=== PATIENT | male | born 1955 | race Caucasian/White ===

== ENCOUNTER 2019-11-01 06:30 | Day surgery (SDC) | payer MEDICARE, OTHER ==
[2019-11-01] MEDS ORDERED: Buffered Lidocaine 1% SYRIN* 1 ML/SYRINGE INTRADERM ONE (07:07)
[2019-11-01] MEDS ORDERED: Midazolam* 1 MG/ML 2 ML VIAL (2 MG) ONE (07:40)
[2019-11-01] MEDS ORDERED: fentaNYL* 50 MCG/ML 2 ML VIAL (100 MCG VIAL) ONE (07:40)
[2019-11-01] MEDS ORDERED: Propofol* 10 MG/ML 20 ML BTL ONE (08:20)
[2019-11-01] MEDS ORDERED: Neomycin/Polymy/Dex OPTH.SUSP* MAXITROL 0.1% 5 ML ONE (08:56)
[2019-11-01] MEDS ORDERED: Phenylephrine OPHTH SOL 2.5%* 2 ML ONE (08:56)
[2019-11-01] MEDS ORDERED: Proparacaine 0.5% OPHTH.SOL* 15 ML BTL ONE (08:56)
[2019-11-01] MEDS ORDERED: Cyclopentolate 1% OPTH.SOL* 2 ML BTL ONE (08:56)
[2019-11-01] MEDS ORDERED: acetaZOLAMIDE TAB* 250 MG ONE (08:56)
[2019-11-01] MEDS ORDERED: Lidocaine 1% MPF ** 5 ML VIAL ONE (08:56)
[2019-11-01] MEDS ORDERED: Lidocaine 2% w/ EPI 1:200,000* 20 ML SDV VIAL ONE (08:56)
[2019-11-01] MEDS ORDERED: Ketorolac 0.5% OPHTH (NF) 0.5 % 5 ML BTL ONE (08:56)
[2019-11-01] MEDS ORDERED: Povidone Iodine 5% OPTH* 30 ML BTL ONE (08:56)
[2019-11-01 09:03] VITALS: BP 110/65
--- NOTE | 2019-11-01 09:42 | OP ---
OPERATIVE NOTE: DATE OF OPERATION: 11/01/19 DATE OF : 51 SURGEON: Yakov Lange MD PREOPERATIVE DIAGNOSIS: Cataract and glaucoma, right eye. POSTOPERATIVE DIAGNOSIS: Cataract and glaucoma, right eye. OPERATIVE PROCEDURE: Extracapsular cataract extraction with intraocular lens implant and iStent, rig ht eye. PROCEDURE: The patient was brought to the operating room after being given 1/2% Alcaine with epineph rine drops in the preoperative area. The eye was prepped and draped in the usual sterile fashion. S terile drape and eyelid speculum were placed. Again, topical 1/2% Alcaine with epinephrine was given . A paracentesis incision was made at the 9 o'clock position with the No.75 blade. Clear cornea inc ision 2.2 x 2.2-mm was created at the 12 o'clock position starting at the anterior limbus using the 2 .2-mm keratome. The anterior chamber was irrigated with 0.4 mL of 1% non-preservative intracameral l idocaine and filled with DisCoVisc. A capsulorrhexis was completed using the cystotome and the Utrat a forceps. Hydrodissection was performed with balanced salt solution. The lens nucleus was removed w ith the Phacoemulsification handpiece without incident. Cortex was removed with the irrigation-aspir ation handpiece. The capsular bag was re-inflated using DisCoVisc and an SN60WF 11.5 implant was ins erted with the shooter followed by iStent inject inserted with a shooter at the 2 o'clock and 4 o'beverly ck position. The irrigation-aspiration handpiece was used to remove all residual DisCoVisc. The eye was refilled with balanced salt solution and the wound checked and found to be watertight. Topical M axitrol drops were given. [id number]/[facility] #: [id number]
[2019-11-02] MEDS ORDERED: Acetaminophen TAB* 325 MG PO PRN (05:00)
== END 2019-11-01 08:58 | disposition home or self-care (01) ==
LOC: OREAST 06:30
PROVIDERS: ATTEND Specialist
DX: H25.811 Combined forms of age-related cataract, right eye (principal); H40.1131 Primary open-angle glaucoma, bilateral, mild stage; H35.373 Puckering of macula, bilateral; I10 Essential (primary) hypertension; E78.00 Pure hypercholesterolemia, unspecified; Z85.828 Personal history of other malignant neoplasm of skin
CPT/HCPCS: A9270-GY; C1783; J2250; J2704; J3010; V2632

== ENCOUNTER 2019-11-08 07:46 | Day surgery (SDC) | payer MEDICARE, OTHER ==
[~2019-11-08 07:46] MED LIST: Acetaminophen TAB* 325 MG PO PRN; Buffered Lidocaine 1% SYRIN* 1 ML/SYRINGE INTRADERM ONE
[2019-11-08] MEDS ORDERED: Midazolam* 1 MG/ML 2 ML VIAL (2 MG) ONE (09:24)
[2019-11-08 10:41] VITALS: BP 107/61
--- NOTE | 2019-11-08 11:35 | OP ---
DATE OF OPERATION: 11/08/2019. DATE OF : 1955. SURGEON: Yakov Lange M.D. PREOPERATIVE DIAGNOSIS: Cataract left eye and glaucoma. POSTOPERATIVE DIAGNOSIS: Cataract left eye and glaucoma. OPERATIVE PROCEDURE: Extracapsular cataract extraction with intraocular lens implant and iStent left eye. PROCEDURE: The patient was brought to the operating room after being given 1/2% Alcaine with epineph rine drops in the preoperative area. The eye was prepped and draped in the usual sterile fashion. S terile drape and eyelid speculum were placed. Again, topical 1/2% Alcaine with epinephrine was given . A paracentesis incision was made at the 3 o'clock position with the No.75 blade. Clear cornea inc ision 2.2 x 2.2-mm was created at the 6 o'clock position starting at the anterior limbus using the 2. 2-mm keratome. The anterior chamber was irrigated with 0.4 mL of 1% non-preservative intracameral li docaine and filled with DisCoVisc. A capsulorrhexis was completed using the cystotome and the Utrata forceps. Hydrodissection was performed with balanced salt solution. The lens nucleus was removed wi th the Phacoemulsification handpiece without incident. Cortex was removed with the irrigation-aspira tion handpiece. The capsular bag was re-inflated using DisCoVisc and an SN60WF 10.5 implant was inse rted with the shooter, followed by an iStent inject inserted with its shooter at the 8 o'clock and 10 o'clock positions. The irrigation-aspiration handpiece was used to remove all residual DisCoVisc. The eye was refilled with balanced salt solution and the wound checked and found to be watertight. T opical Maxitrol drops were given. [id number]/[facility] #: [id number]
[2019-11-08] MEDS ORDERED: Phenylephrine OPHTH SOL 2.5%* 2 ML ONE (15:05)
[2019-11-08] MEDS ORDERED: Proparacaine 0.5% OPHTH.SOL* 15 ML BTL ONE (15:05)
[2019-11-08] MEDS ORDERED: Lidocaine 2% w/ EPI 1:200,000* 20 ML SDV VIAL ONE (15:05)
[2019-11-08] MEDS ORDERED: Povidone Iodine 5% OPTH* 30 ML BTL ONE (15:05)
[2019-11-08] MEDS ORDERED: Cyclopentolate 1% OPTH.SOL* 2 ML BTL ONE (15:05)
[2019-11-08] MEDS ORDERED: acetaZOLAMIDE TAB* 250 MG ONE (15:05)
[2019-11-08] MEDS ORDERED: Ketorolac 0.5% OPHTH (NF) 0.5 % 5 ML BTL ONE (15:05)
[2019-11-08] MEDS ORDERED: Lidocaine 1% MPF ** 5 ML VIAL ONE (15:05)
[2019-11-08] MEDS ORDERED: Neomycin/Polymy/Dex OPTH.SUSP* MAXITROL 0.1% 5 ML ONE (15:05)
== END 2019-11-08 10:35 | disposition home or self-care (01) ==
LOC: OREAST 07:46
PROVIDERS: ATTEND Specialist
DX: H25.812 Combined forms of age-related cataract, left eye (principal); H40.1131 Primary open-angle glaucoma, bilateral, mild stage; H35.373 Puckering of macula, bilateral; Z87.891 Personal history of nicotine dependence; I10 Essential (primary) hypertension; E78.2 Mixed hyperlipidemia; M54.9 Dorsalgia, unspecified
CPT/HCPCS: A9270-GY; C1783; J2250; V2632

== ENCOUNTER 2022-07-31 13:33 | Inpatient (IN) ==
[2022-07-31 16:54] LABS: ABS Basophils 0.1 10^3/ul (0-0.2); ABS Eosinophils 0.1 10^3/ul (0-0.6); ABS Lymphocytes 1.8 10^3/ul (1.0-4.8); ABS Monocytes 0.3 10^3/ul (0-0.8); ABS Neutrophils 3.6 10^3/ul (1.5-7.7); Eosinophil % 1.4 %; Hematocrit 45 % (42-52); Hemoglobin 15.1 g/dL (14.0-18.0); Lymphocyte % 30.4 %; Mean Corpuscular HGB Conc 34 g/dL (31-36); Mean Corpuscular Hemoglobin 30 pg (27-31); Mean Corpuscular Volume 88 fL (80-94); Mean Platelet Volume 8.7 fL (7.4-10.4); Nucleated Red Blood Cells % 0.1; Platelet Count 235 10^3/uL (150-450); Red Blood Count 5.09 10^6 /uL (4.18-5.48); Red Cell Distribution Width 15 % (10-15); White Blood Count 5.8 10^3/uL (3.5-10.8)
[2022-07-31 17:11] LABS: Albumin 4.4 g/dL (3.2-5.2); Albumin/Globulin Ratio 1.5 (1-3); Calcium 9.4 mg/dL (8.6-10.3); Potassium 3.5 mmol/L (3.5-5.0); Total Bilirubin 0.3 mg/dL (0.2-1.0); Total Protein 7.4 g/dL (6.4-8.9); eGFR CKD-EPI 95.4 (>60)
[2022-07-31] MEDS ORDERED: Iohexol 350 (CONTRAST) 500 ML MDV IV ONE (17:53)
[2022-08-01] MEDS ORDERED: Enoxaparin 40 MG/0.4 ML SYR SUBCUT SCH (06:00)
[2022-08-01] MEDS ORDERED: Heparin 5000 UNITS/ML 1 mL VIAL SUBCUT SCH (06:00)
[2022-08-01 06:20] LABS: HDL Cholesterol 38.3 mg/dL
[2022-08-01 08:14] LABS: ABS Basophils 0.1 10^3/ul (0-0.2); ABS Eosinophils 0.1 10^3/ul (0-0.6); ABS Lymphocytes 1.7 10^3/ul (1.0-4.8); ABS Monocytes 0.4 10^3/ul (0-0.8); ABS Neutrophils 2.9 10^3/ul (1.5-7.7); Eosinophil % 2.3 %; Hematocrit 42 % (42-52); Hemoglobin 14.1 g/dL (14.0-18.0); Lymphocyte % 32.5 %; Mean Corpuscular HGB Conc 33 g/dL (31-36); Mean Corpuscular Hemoglobin 29 pg (27-31); Mean Corpuscular Volume 88 fL (80-94); Mean Platelet Volume 8.6 fL (7.4-10.4); Platelet Count 228 10^3/uL (150-450); Red Blood Count 4.82 10^6 /uL (4.18-5.48); Red Cell Distribution Width 15 % (10-15); White Blood Count 5.2 10^3/uL (3.5-10.8)
[2022-08-01] MEDS ORDERED: CMCS: Brimonidine P 0.15%(NF) OPH SOL 5 ML BTL BOTH EYES SCH (09:00)
[2022-08-01] MEDS ORDERED: Timolol 0.5% OPTH.SOL BTL BOTH EYES SCH (09:00)
[2022-08-01 09:06] LABS: Calcium 9.2 mg/dL (8.6-10.3); Magnesium 2.1 mg/dL (1.9-2.7); Potassium 3.5 mmol/L (3.5-5.0); eGFR CKD-EPI 95.1 (>60)
[2022-08-01] MEDS ORDERED: Aspirin EC 81 mg TAB.EC (enteric coated) PO SCH (10:00)
[2022-08-01 10:06] LABS: T4, Total 9.08 mcg/dL (6.09-12.23)
[2022-08-01 10:08] LABS: TSH Ultra Thyroid Stim Horm 5.79 mcIU/mL (0.34-5.60)
[2022-08-01] MEDS: KCL 10 MEQ/50 ML IVPREMIX 10 MEQ/50 ML BAG IV SCH ×3 (11:42→14:17)
[2022-08-01 15:34] VITALS: BP 145/80
[2022-08-01] MEDS ORDERED: Latanoprost 0.005% 2.5 ml BTL BOTH EYES SCH (21:00)
== END 2022-08-01 15:30 | disposition home or self-care (01) | DRG 74 ==
LOC: ED 13:33 → EDHOLD 13:33 → ICU 15:45 → MEDTELE 08-01 12:04
PROVIDERS: ADMIT Internal Medicine; ATTEND Internal Medicine